=== PATIENT | male | born 1950 | race Caucasian/White ===

== ENCOUNTER → 2016-10-19 | Outpatient (CLI) | payer MEDICARE ==
--- NOTE | 2016-10-19 14:51 | US ---
EXAMINATION TYPE: US venous doppler duplex LE DATE OF EXAM: 10/19/2016 2:33 PM COMPARISON: NONE CLINICAL HISTORY: I82.409 DVT. Patient states having RLEV doppler at a different facility x 2 weeks a go and with it being positive. 2 week follow up. On blood thinners. Bilateral leg pain and swellin g. Right knee surgery August 2016. SIDE PERFORMED: Bilateral TECHNIQUE: The lower extremity deep venous system is examined utilizing real time linear array sonog lashell with graded compression, doppler sonography and color-flow sonography. VESSELS IMAGED: External Iliac Vein (EIV) Common Femoral Vein Deep Femoral Vein Greater Saphenous Vein * Femoral Vein Popliteal Vein Small Saphenous Vein * Proximal Calf Veins (* superficial vessels) No popliteal fossa lesion is seen. Right Leg: Echogenic septation seen in mid popliteal vein. Patency seen. Left Leg: Appears negative for DVT. IMPRESSION: 1. THIS EXAMINATION IS NEGATIVE FOR DVT IN THE LEFT LEG. 2. EVIDENCE OF CHRONIC THROMBUS WITHIN THE RIGHT LEG.
== END | disposition home or self-care (01) ==
LOC: RADUSWWP 13:56
PROVIDERS: ATTEND Pediatrics
DX: I82.531 Chronic embolism and thrombosis of right popliteal vein (principal)
CPT/HCPCS: 93970

== ENCOUNTER 2018-06-22 07:39 | Day surgery (SDC) | payer MEDICARE ==
[~2018-06-22 07:39] MED LIST: PREMYELOGRAM MEDICATION REVIEW 1 EACH MISC PO NR
[2018-06-22] MEDS ORDERED: DIAZEPAM 5 MG TAB PO STA (08:18)
[2018-06-22 08:30] VITALS: TEMP 97.7
[2018-06-22] MEDS ORDERED: PREMYELOGRAM MEDICATION REVIEW 1 EACH MISC PO ONE ×2 (08:37→09:15)
--- NOTE | 2018-06-22 10:24 | FL ---
EXAMINATION TYPE: FL myelogram 2 or more regions DATE OF EXAM: 06/22/2018 COMPARISON: NONE HISTORY: Back and neck pain. History of lumbar stenosis and prior laminectomy. Thoracic nerve stimula tor. TECHNIQUE: Fluoroscopy time: 1 minute and 49 seconds Images saved: 11 Informed consent was obtained and all the patient's questions were answered. Preprocedural timeout w as performed. The L3-L4 level was localized under fluoroscopy. Standard sterile technique was utiliz ed as well as appropriate local anesthesia 1% Lidocaine (30 cc). Spinal needle was introduced into t he thecal sac under fluoroscopic guidance and 10 mL's of Isovue 300M was injected. The patient jeannie ated the procedure well and left the department in stable condition. CT myelography is to follow. IMPRESSION: Successful myelography. CT to follow.
[2018-06-22 10:45] VITALS: RESP 15
--- NOTE | 2018-06-22 10:59 | CT ---
EXAMINATION TYPE: CT lumbar spine w con DATE OF EXAM: 06/22/2018 COMPARISON: Outside report of a prior MRI of the lumbar spine dated 08/18/2015 HISTORY: Lumbar stenosis CT DLP: 1675.90 mGycm Automated exposure control for dose reduction was used. CONTRAST: CT scan of the lumbar is performed with IV Contrast, patient injected with 15 cc mL of Isovue M300. TECHNIQUE Enhanced CT (intrathecal contrast) of the lumbar spine was performed. Bone and soft tissue window settings are submitted as well as coronal and sagittal reconstructions. FINDINGS: The lumbar spine vertebral bodies maintain normal vertebral body height and alignment. Post erior osteophytes project from the inferior endplate of L5 and superior endplate of S1. There is inte rvertebral disc space narrowing and vacuum disc phenomenon at this level. Vacuum disc phenomenon is a lso seen at L1-L2. Very small posterior osteophyte is seen of the inferior endplate of L1. Small ante rior osteophytes are also seen at multiple levels as well as multilevel facet arthropathy. Conus medu llaris terminates at L1-L2 and is unremarkable on CT. Right basilar atelectasis is evident. Moderate atherosclerosis of the abdominal aorta is incidentally noted. No acute fracture or malalignment of th e lumbar spine. L1-L2: There is a broad-based disc bulge and minimal facet arthropathy resulting in mild narrowing of the spinal canal and bilateral neural foramen. This has progressed from the prior report. L2-L3: There is a small broad-based disc bulge resulting in minimal neural foraminal narrowing withou t spinal canal stenosis. L3-L4: There is a broad-based disc bulge and facet arthropathy resulting in mild bilateral neural for aminal narrowing, right greater than left without spinal canal stenosis. L4-L5: There is a central disc herniation impressing upon the ventral thecal sac and superimposed upo n a broad-based disc bulge with facet arthropathy creating mild bilateral neural foraminal narrowing. This was described as a left paracentral disc protrusion on the prior 2015. L5-S1: There is a small central disc herniation described as a right paracentral disc herniation on t he prior 2015. This abuts the ventral thecal sac without significant spinal canal stenosis. Posterior projecting osteophytes again create moderate bilateral neural foraminal narrowing. As seen on the pr ior exam this creates mild impression upon the bilateral exiting L5 nerve roots. IMPRESSION: 1. Progression of degenerative disc disease in comparison to the prior report provided from an [facility] institution dated 08/18/2015. 2. There is a new broad-based disc bulge at L1-L2 creating mild spinal canal stenosis and mild bilate ral neural foraminal narrowing. 3. There is a central disc herniation at L4-L5, described on the prior, that creates mild spinal jonathan l stenosis and mild bilateral neural foraminal narrowing. 4. Small central disc herniation at L5-S1 with posterior projecting osteophytes creating moderate eugenio ateral neural foraminal narrowing and mildly impressing upon the bilateral exiting L5 nerve roots, as described on the prior report.
--- NOTE | 2018-06-22 11:12 | CT ---
EXAMINATION TYPE: CT cervical spine w con DATE OF EXAM: 06/22/2018 COMPARISON: Outside x-ray report of the cervical spine dated 07/07/2017 HISTORY: Cervical disc degeneration CT DLP: 674.20 mGycm Automated exposure control for dose reduction was used. TECHNIQUE/CONTRAST: Axial CT of the cervical spine was performed after injection of intrathecal contrast for myelogram pr otocol. Coronal and sagittal reformats were obtained for review. Performed with IV Contrast, patient injected with 15 cc mL of Isovue M300. FINDINGS: The cervical spine vertebral body heights and alignment are maintained. Intervertebral disc space isabel rowing is seen at C3-C4 and C6-C7. Multilevel uncovertebral hypertrophy and facet arthropathy are see n. There is straightening of usual cervical lordosis. C2-C3: There is a broad-based disc bulge and mild facet arthropathy as well as uncovertebral hypertro phy creating mild left neural foraminal narrowing. No right neural foraminal narrowing nor significan t spinal canal stenosis. C3-C4: There is a broad-based disc bulge narrowing the ventral subarachnoid space as well as mild unc overtebral hypertrophy creating minimal bilateral neural foraminal narrowing and mild spinal canal st enosis. C4-C5: There is a central disc herniation on axial image 44 crating mild spinal canal stenosis as it narrows the ventral subarachnoid space. No significant neural foraminal narrowing at this level. C5-C6: There is minimal uncovertebral hypertrophy and a left eccentric broad-based disc bulge mildly narrowing the left neural foramen. Spinal canal and right neural foramen are patent. C6-C7: There is a broad-based disc bulge and uncovertebral hypertrophy creating mild bilateral neural foraminal narrowing without significant spinal canal stenosis. C7-T1: No significant disc disease, spinal canal stenosis nor neural foraminal narrowing. Mild paraseptal emphysematous changes are seen at the lung apices with scattered left anterior apical blebs. IMPRESSION: 1. SMALL CENTRAL DISC HERNIATION AT C4-C5 CREATING MILD SPINAL CANAL STENOSIS 2. NO EVIDENCE OF VERTEBRAL BODY HEIGHT LOSS OR MALALIGNMENT ALTHOUGH THERE IS STRAIGHTENING OF USUAL CERVICAL LORDOSIS THAT MAY RELATE TO MUSCULAR SPRAIN/SPASM OR PATIENT POSITIONING. 3. MILD MULTILEVEL DEGENERATIVE DISC DISEASE OF THE CERVICAL SPINE CREATING VARIABLE DEGREES OF NEURA L FORAMINAL NARROWING AND MILD SPINAL CANAL STENOSIS AT C3-C4.
[2018-06-22 12:16] VITALS: BP 119/63; PULSE 63
== END 2018-06-22 13:10 | disposition home or self-care (01) ==
LOC: RADPROMAIN 07:39 → 4SSUR 10:17 → RADPROMAIN 13:10
PROVIDERS: ATTEND Neurological Surgery
DX: M50.30 Other cervical disc degeneration, unspecified cervical region (principal); M50.221 Other cervical disc displacement at C4-C5 level; M48.02 Spinal stenosis, cervical region; M48.061 Spinal stenosis, lumbar region without neurogenic claudication; M51.26 Other intervertebral disc displacement, lumbar region; M51.36 Other intervertebral disc degeneration, lumbar region; M51.17 Intervertebral disc disorders with radiculopathy, lumbosacral region; M25.78 Osteophyte, vertebrae; I10 Essential (primary) hypertension; M19.90 Unspecified osteoarthritis, unspecified site; G89.29 Other chronic pain; Z96.89 Presence of other specified functional implants; Z85.828 Personal history of other malignant neoplasm of skin; Z86.718 Personal history of other venous thrombosis and embolism; Z87.891 Personal history of nicotine dependence; Z80.1 Family history of malignant neoplasm of trachea, bronchus and lung; Z79.1 Long term (current) use of non-steroidal anti-inflammatories (NSAID); Z79.899 Other long term (current) drug therapy; Z88.2 Allergy status to sulfonamides; Z88.8 Allergy status to other drugs, medicaments and biological substances; Z91.040 Latex allergy status
CPT/HCPCS: 62305; 72126; 72132; J2001; Q9967; 62284

== ENCOUNTER → 2018-11-13 | Outpatient (CLI) | payer MEDICARE ==
--- NOTE | 2018-11-13 14:34 | XR ---
EXAM TYPE: LUMBAR SPINE X RAY SERIES COMPARISON: 06/22/2018 HISTORY: Post fusion TECHNIQUE: 4 views are submitted. FINDINGS: Postsurgical change L4-5 and L5-S1. Hypertrophic change and degenerative disc disease involving the t horacolumbar junction and lumbar spine. Vascular calcifications noted. IMPRESSION: 1. Postsurgical changes.
== END | disposition home or self-care (01) ==
LOC: RADXRMAIN 14:14
PROVIDERS: ATTEND Neurological Surgery
DX: M43.26 Fusion of spine, lumbar region (principal); Z98.890 Other specified postprocedural states
CPT/HCPCS: 72100

== ENCOUNTER → 2018-11-17 | Outpatient (CLI) | payer MEDICARE ==
--- NOTE | 2018-11-18 09:29 | CT ---
EXAMINATION TYPE: CT hip RT wo con, CT hip LT wo con, CT pelvis wo con DATE OF EXAM: 11/17/2018 COMPARISON: None HISTORY: Bilateral hip pain. No injury. (accession [id number]), Bilateral hip pain. No injury. (accessi on [id number]), Bilateral hip pain, no injury. (accession [id number]) CT DLP: 918.6 mGycm Automated exposure control for dose reduction was used. Unenhanced CT of the bilateral hips and pelvis was performed in the bone and soft tissue window [facility]. Coronal axial and sagittal reconstruction images are obtained. 3-D reconstruction images are obt ained at a separate workstation. FINDINGS: Lumbar laminectomy changes are noted. There is mild degenerative joint space narrowing involving the bilateral hip joint spaces. I do not see evidence for fracture or dislocation. No evidence for femora l acetabular impingement. There is greater trochanteric spurring bilaterally with mild bursitis sugge sted. No osseous lesion or soft tissue mass present. Structures are within normal limits. IMPRESSION: 1. No evidence for fracture or dislocation. 2. 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 3. Greater trochanteric spurring which may reflect mild bursitis.
== END ==
LOC: RADCTMAIN 15:34
PROVIDERS: ATTEND Neurological Surgery
DX: M54.30 Sciatica, unspecified side (principal); M16.0 Bilateral primary osteoarthritis of hip
CPT/HCPCS: 72192

== ENCOUNTER → 2022-01-11 | Outpatient (CLI) | payer MEDICARE ==
--- NOTE | 2022-01-11 15:55 | XR ---
Lumbar spine HISTORY: Back pain 3 views of lumbar spine correlated prior exam 11/13/2018 Bone mineralization is reduced. Postop changes status post posterior fusion at L4-S1 is again noted, intervertebral spacing devices are present at the disc spaces as on prior. There is a slight spinal c urvature. Lumbar vertebral bodies show preserved height and alignment. Multilevel spondylosis is pres ent. Facet arthropathy changes present. There are leads coursing in the soft tissues posterior to the thoracic spine. Loss of disc height is present at L1 to, T12-L1, minimal retrolisthesis grade 1 L1-2 , L3-4. Endplate sclerosis present at L5 and S1. IMPRESSION: Postop changes, degenerative disc disease, facet arthropathy. Osteopenia. Slight spinal c urvature.
== END | disposition home or self-care (01) ==
LOC: RADXRMAIN 14:06
PROVIDERS: ATTEND Physician Assistant
DX: M51.36 Other intervertebral disc degeneration, lumbar region (principal); M85.80 Other specified disorders of bone density and structure, unspecified site
CPT/HCPCS: 72100

== ENCOUNTER → 2022-11-11 | Outpatient (CLI) | payer MEDICARE | END | disposition home or self-care (01) | LOC: LABWHC1 11:24 | PROVIDERS: ATTEND Pediatrics | DX: N40.0 Benign prostatic hyperplasia without lower urinary tract symptoms (principal); R79.89 Other specified abnormal findings of blood chemistry | CPT/HCPCS: 36415; 84403 ==

== ENCOUNTER → 2023-09-28 | Outpatient (CLI) | payer MEDICARE ==
--- NOTE | 2023-09-28 16:17 | XR ---
EXAMINATION TYPE: XR Hip Bilateral Complete DATE OF EXAM: 09/28/2023 3:51 PM CLINICAL INDICATION:Male, 72 years old with history of PAIN; MERGED WITH [facility] COMPARISON: None. TECHNIQUE: XR Hip Bilateral Complete; hip was examined in the frontal and lateral projections FINDINGS: No evidence for acute process, joint dislocation or significant soft tissue swelling. Osteo phyte formation of the superior acetabulum of the hip. There is mild joint space narrowing. IMPRESSION: 1. No evidence for acute process. 2. Mild to moderate bilateral hip osteoarthrosis.
== END | disposition home or self-care (01) ==
LOC: RADXRMAIN 15:30
PROVIDERS: ATTEND Neurological Surgery
DX: M16.0 Bilateral primary osteoarthritis of hip (principal)
CPT/HCPCS: 73521

== ENCOUNTER → 2024-11-02 | Outpatient (CLI) | payer MEDICARE ==
--- NOTE | 2024-11-02 13:47 | XR ---
EXAMINATION TYPE: XR Hip Bilateral Complete DATE OF EXAM: 11/02/2024 1:29 PM INDICATION: Patient age:Male; 73 years old; Reason for study: M25.551 RIGHT HIP PAIN; [facility]. pain COMPARISON: Bilateral hip radiographs 09/28/2023, CT pelvis and bilateral hips 11/17/2018 TECHNIQUE: Both hips were examined in the frontal and lateral projections. FINDINGS: No evidence of any acute osseous pathology, joint dislocation, or soft tissue swelling. Mil d medial joint space narrowing with osteophyte formation involving both hips. Partial visualization o f lumbar fusion hardware. IMPRESSION: 1. No acute osseous pathology. 2. Mild osteoarthritic changes of both hips. [facility], , 11/02/2024 1:44 PM
== END | disposition home or self-care (01) ==
LOC: RADXRMAIN 13:07
PROVIDERS: ATTEND Pediatrics
DX: M16.0 Bilateral primary osteoarthritis of hip (principal)
CPT/HCPCS: 73521